=== PATIENT | male | born 1960 | race African-American/Black ===

== ENCOUNTER → 2017-06-04 | Outpatient (CLI) | payer BC ==
[~2017-06-04] VITALS: Ht 180.3 cm; Wt 90.7 kg
[~2017-06-04] MED LIST: SYNJARDY 12.5-1 EAC1 PO; TYLENOL EXTRA500 MG PO; ZOLOFT50 MG PO
[2017-06-04 14:17] LABS: CHLORIDE 108 MEQ/L (99-109); GFR ESTIMATE (CALCULATED) > 59 mL/min/ (58.99-99999); GLUCOSE 100 mg/dL (70-99); POTASSIUM 4.2 MEQ/L (3.7-5.4); SODIUM 139 MEQ/L (136-147); UREA NITROGEN (BUN) 9 mg/dL (9-23)
== END | disposition home or self-care (01) ==
LOC: AMB 13:00
PROVIDERS: Internal Medicine
PROC: 0DBK8ZX Excision of Ascending Colon, Via Natural or Artificial Opening Endoscopic, Diagnostic (ICD-10-PCS; principal; 2017-06-04)
DX: D12.2 Benign neoplasm of ascending colon (principal); E11.9 Type 2 diabetes mellitus without complications; F17.200 Nicotine dependence, unspecified, uncomplicated; Z88.0 Allergy status to penicillin
CPT/HCPCS: 80048; 82948; 88305; 93005; J2250